=== PATIENT | female | born 1975 | race Two or more races ===

== ENCOUNTER 2018-09-28 20:04 | Emergency (ER) | payer OTHER ==
[~2018-09-28] VITALS: Ht 157.5 cm; Wt 45.4 kg
[2018-09-29] MEDS ORDERED: ZOFRAN8 MG PO (02:02)
[2018-09-29] MEDS ORDERED: PEPCID40 MG PO (02:02)
== END 2018-09-29 02:20 | disposition home or self-care (01) ==
LOC: ER 20:04
DX: K29.70 Gastritis, unspecified, without bleeding (principal)

== ENCOUNTER 2020-06-28 08:26 | Outpatient (CLI) | payer OTHER ==
[~2020-06-28 08:26] MED LIST: PEPCID40 MG PO; ZOFRAN8 MG PO
== END 2020-06-28 08:36 | disposition home or self-care (01) ==
LOC: RAD 08:26
PROVIDERS: ATTEND Orthopaedic Surgery
DX: M25.531 Pain in right wrist (principal)

== ENCOUNTER 2024-03-04 07:29 | Outpatient (CLI) | payer OTHER ==
[2024-03-04 08:00] LABS: HEMATOCRIT 39.6 % (36.0-45.00); HEMOGLOBIN 13.2 g/dL (12.0-15.00); MEAN CORPUSCULAR HGB CONC 33.4 g/dl (32.0-36.0); PLATELET COUNT 254 K/uL (150-450); RED BLOOD COUNT 4.89 M/uL (4.00-6.00); RED CELL DISTRIBUTION WIDTH 14.2 % (11.5-14.5)
[2024-03-04 10:30] LABS: ALBUMIN 3.6 gm/dL (3.4-5.0); BILIRUBIN TOTAL 0.48 mg/dL (0.3-1.2); CALCIUM 8.8 mg/dL (8.5-10.1); CREATININE SERUM 0.45 mg/dL (0.55-1.02); GFR 149.35; GLOBULINA 4.1 G/DL (2.4-3.5); POTASSIUM 4.16 mEq/L (3.5-5.1); TOTAL PROTEIN 7.7 gm/dL (6.4-8.2)
== END 2024-03-04 07:30 | disposition home or self-care (01) ==
LOC: LAB 07:29
DX: C20 Malignant neoplasm of rectum (principal)

== ENCOUNTER 2024-06-14 06:39 | Outpatient (CLI) | payer OTHER ==
[2024-06-14 07:11] LABS: HEMOGLOBIN 13.4 g/dL (12.0-15.00); MEAN CELL VOLUME 82.7 fL (80.00-100.00); MEAN CORPUSCULAR HGB CONC 32.7 g/dl (32.0-36.0); PLATELET COUNT 223 K/uL (150-450); RED BLOOD COUNT 4.95 M/uL (4.00-6.00); RED CELL DISTRIBUTION WIDTH 14.1 % (11.5-14.5)
[2024-06-14 07:34] LABS: ALBUMIN 3.6 gm/dL (3.4-5.0); BILIRUBIN TOTAL 0.47 mg/dL (0.3-1.2); CALCIUM 8.9 mg/dL (8.5-10.1); CREATININE SERUM 0.46 mg/dL (0.55-1.02); GFR 145.61; GLOBULINA 4.1 G/DL (2.4-3.5); POTASSIUM 4.13 mEq/L (3.5-5.1); TOTAL PROTEIN 7.7 gm/dL (6.4-8.2)
== END 2024-06-14 06:45 | disposition home or self-care (01) ==
LOC: LAB 06:39
PROVIDERS: ATTEND Surgery
DX: D12.3 Benign neoplasm of transverse colon (principal); Z85.048 Personal history of other malignant neoplasm of rectum, rectosigmoid junction, and anus; K62.7 Radiation proctitis

== ENCOUNTER 2024-07-25 08:48 | Outpatient (CLI) | payer OTHER ==
[2024-07-25] MEDS ORDERED: MULTIPLE VITAM1 EAC2 PO (09:09)
[2024-07-25] MEDS ORDERED: ESTROGEL TD (09:10)
[2024-07-25 11:32] LABS: CHOL HDL RATIO 5.5 (0-5.0)
== END 2024-07-25 13:58 | disposition home or self-care (01) ==
LOC: LAB 08:48
DX: C18.9 Malignant neoplasm of colon, unspecified (principal); E78.5 Hyperlipidemia, unspecified

== ENCOUNTER 2024-07-27 05:00 | Day surgery (SDC) | payer OTHER ==
[2024-07-23 10:39] LABS: HEMATOCRIT 40.8 % (36.0-45.00); HEMOGLOBIN 13.5 g/dL (12.0-15.00); MEAN CELL VOLUME 81.3 fL (80.00-100.00); MEAN CORPUSCULAR HEMOGLOBIN 26.9 pg (27.00-32.0); MEAN CORPUSCULAR HGB CONC 33.2 g/dl (32.0-36.0); PLATELET COUNT 260 K/uL (150-450); RED BLOOD COUNT 5.02 M/uL (4.00-6.00); RED CELL DISTRIBUTION WIDTH 14.8 % (11.5-14.5)
[2024-07-23 10:39] LABS: URINE APPEARANCE Clear; URINE BILIRRUBIN Negative (NEGATIVE); URINE BLOOD Negative; URINE COLOR Yellow; URINE GLUCOSE Negative (NEGATIVE); URINE KETONE Negative (NEGATIVE); URINE LEUKOCYTE Negative; URINE NITRATE Negative; URINE PROTEIN Negative (NEGATIVE); URINE UROBILINOGEN 0.2 E.U./dl
[2024-07-23 10:56] LABS: URINE BACTERIA 1177.4 uL (0.0-1933); URINE EPITHELIAL CELLS 70.2 uL (0.0-38.8); URINE RBC 7.3 uL (0.0-20.8); URINE WBC 24.8 uL (0.0-23.2)
[2024-07-23 11:02] LABS: INR 0.97; PARTIAL THROMBOPLASTIN TIME 28.2 SECONDS (22.0-34.0); PROTHROMBIN TIME 10.6 SECONDS (9.0-11.5)
[2024-07-23 11:20] LABS: ALBUMIN 3.8 gm/dL (3.4-5.0); BILIRUBIN TOTAL 0.6 mg/dL (0.3-1.2); CALCIUM 8.7 mg/dL (8.5-10.1); CREATININE SERUM 0.45 mg/dL (0.55-1.02); GFR 149.35; GLOBULINA 4.2 G/DL (2.4-3.5); POTASSIUM 4.09 mEq/L (3.5-5.1)
[2024-07-23 11:20] LABS: URINE CAST 0.58 uL (0.0-1.40)
[2024-07-25 09:20] VITALS: BP 122/83
[~2024-07-27] VITALS: Ht 180.3 cm; Wt 53.1 kg
[~2024-07-27 05:00] MED LIST changes: +ESTROGEL TD; +MULTIPLE VITAM1 EAC2 PO
[2024-07-27] MEDS ORDERED: CEFAZOLIN SODIUM 1,000 MG VIAL ONE (06:47)
[2024-07-27] MEDS ORDERED: LIDOCAINE HCL 1%/EPINEPHRINE 20ML VIAL IJ ONE ×2 (07:20→07:44)
[2024-07-27] MEDS ORDERED: BUPIVACAINE HCL/MPF 0.5% 30ML VIAL ONE ×2 (07:20→07:38)
[2024-07-27] MEDS ORDERED: TRAM1TAB98 PO (08:29)
== END 2024-07-27 10:40 | disposition home or self-care (01) ==
LOC: CIR.AMB 05:00
PROVIDERS: ATTEND Surgery
DX: T82.594A Other mechanical complication of infusion catheter, initial encounter (principal); Z85.048 Personal history of other malignant neoplasm of rectum, rectosigmoid junction, and anus; D12.3 Benign neoplasm of transverse colon